=== PATIENT | female | born 1965 | race African-American/Black ===

== ENCOUNTER 2018-12-09 05:33 | Emergency (ER) | payer OTHER ==
[~2018-12-09] VITALS: Ht 167.6 cm; Wt 132.0 kg
[2018-12-09] MEDS ORDERED: SODIUM CHLORIDE 0.9% 1,000 ML IV ONE (06:13)
[2018-12-09] MEDS ORDERED: NITROGLYCERIN 0.4MG TABLET SL SL PRN (06:15)
[2018-12-09] MEDS ORDERED: ASPIRIN 81MG TABLET PO ONE (06:15)
[2018-12-09] MEDS ORDERED: DILTIAZEM HCL 5MG/ML 5ML VIAL IV ONE ×2 (06:15→06:45)
[2018-12-09 06:25] LABS: BASOPHILS % 0.9 % (0.0-2.0); EOSINOPHILS % 2.3 % (0.0-5.0); HEMATOCRIT. 45.1 % (36.0-48.0); HEMOGLOBIN. 15.5 g/dL (12.0-16.0); LYMPHOCYTES % 27.2 % (20.0-50.0); MEAN CORPUSCULAR HEMOGLOBIN 30.4 pg (28.0-32.0); MEAN CORPUSCULAR VOLUME 88.7 fL (81.0-99.0); MEAN PLATELET VOLUME 7.7 fl (7.4-10.4); MONOCYTES % 8.9 % (2.0-8.0); NEUTROPHILS % 60.7 % (40.0-76.0); PLATELET 281 x1000/uL (130-400); RED BLOOD CELL COUNT 5.09 mill/uL (4.2-5.4); RED CELL DISTRIBUTION WIDTH 14.2 % (11.6-14.6)
[2018-12-09 06:31] LABS: CHLORIDE 110 mEq/L (98-107)
[2018-12-09] MEDS ORDERED: MAGNESIUM/ALUMINUM HYDROXIDE/SIMETHICONE 30ML UDC PO ONE (06:45)
[2018-12-09] MEDS ORDERED: DILTIAZEM HCL 90MG TABLET PO ONE (06:45)
[2018-12-09] MEDS ORDERED: POTASSIUM CHLORIDE 20MEQ/PACKET PO ONE (07:45)
[2018-12-09] MEDS ORDERED: KCL 10MEQ/50ML PREMIX 50 ML IV ONE (07:45)
[2018-12-09] MEDS ORDERED: ENOXAPARIN 150MG/ML SYR SUBCUT ONE (08:00)
[2018-12-09 10:11] VITALS: BP 113/56
== END 2018-12-09 10:26 | disposition short-term general hospital (02) ==
LOC: ER 05:33
DX: I48.91 Unspecified atrial fibrillation (principal); E87.6 Hypokalemia; R00.2 Palpitations; R07.89 Other chest pain; R06.02 Shortness of breath; G35 Multiple sclerosis; R00.0 Tachycardia, unspecified
CPT/HCPCS: 36415; 71045; 80053; 83880; 84484; 85025; 93005; 96365; 96372; 96375; 99291; J1650; J3480; J3490; J7030; Z7610